=== PATIENT | male | born 2000 | race Hispanic/Latino ===

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

== ENCOUNTER 2025-05-05 23:30 | Emergency (ER) | payer BC, OTHER, SELFPAY ==
[2025-05-06] MEDS ORDERED: Glucagon 1 MG/ML KIT ONE (00:11)
== END 2025-05-06 02:01 | disposition home or self-care (01) ==
LOC: ERS 23:30
DX: T18.128A Food in esophagus causing other injury, initial encounter (principal)
CPT/HCPCS: 96374; J1611